=== PATIENT | male | born 1995 | race Caucasian/White ===

== ENCOUNTER 2020-12-29 13:35 | Emergency (ER) | payer OTHER ==
[2020-12-29 14:12] VITALS: BP 150/73; PULSE 62; TEMP 98.4; BMI 27.5
== END 2020-12-29 15:59 | disposition home or self-care (01) ==
LOC: FER 13:35
DX: S59.902A Unspecified injury of left elbow, initial encounter (principal); S99.922A Unspecified injury of left foot, initial encounter
CPT/HCPCS: 73070-TC-LT-FY; 73090-TC-LT-FY; 73610-TC-LT-FY; 73630-TC-LT; 99284-25

== ENCOUNTER 2021-08-19 13:14 | Emergency (ER) | payer OTHER ==
[2021-08-19] MEDS ORDERED: ACETAMINOPHEN 325 MG TABLET (FP) PO ONE (13:38)
[2021-08-19] MEDS ORDERED: DIPHTH,PERTUSS(ACELL),TET 0.5 ML DISP.SYRIN IM ONE ×2 (13:38→13:53)
[2021-08-19 13:40] VITALS: BP 144/72; PULSE 52; TEMP 99; BMI 27.5
[2021-08-19] MEDS ORDERED: ACETAMINOPHEN 325 MG TABLET (FP) ONE (13:53)
== END 2021-08-19 14:23 | disposition home or self-care (01) ==
LOC: FER 13:14
DX: M25.561 Pain in right knee (principal)
CPT/HCPCS: 99283-25

== ENCOUNTER 2021-09-17 10:03 | Emergency (ER) | payer OTHER ==
[2021-09-17 10:11] VITALS: BP 137/77; PULSE 58; TEMP 99.1; BMI 27.5
== END 2021-09-17 11:26 | disposition home or self-care (01) ==
LOC: FER 10:03
DX: S09.90XA Unspecified injury of head, initial encounter (principal); S00.01XA Abrasion of scalp, initial encounter; W22.8XXA Striking against or struck by other objects, initial encounter; Y35.811A Legal intervention involving manhandling, law enforcement official injured, initial encounter
CPT/HCPCS: 99281-25

== ENCOUNTER 2021-10-12 15:19 | Emergency (ER) | payer OTHER ==
[2021-10-12 15:46] VITALS: BP 148/75; PULSE 61; TEMP 97.9; BMI 28.1
== END 2021-10-12 16:16 | disposition home or self-care (01) ==
LOC: FER 15:19
DX: S80.211A Abrasion, right knee, initial encounter (principal); S80.212A Abrasion, left knee, initial encounter; Y35.891A Legal intervention involving other specified means, law enforcement official injured, initial encounter
CPT/HCPCS: 99281-25

== ENCOUNTER 2022-05-03 14:02 | Emergency (ER) | payer OTHER ==
[2022-05-03] MEDS ORDERED: DIPHTH,PERTUSS(ACELL),TET 0.5 ML DISP.SYRIN IM ONE (14:09)
[2022-05-03 14:13] VITALS: BP 135/79; PULSE 67; RESP 18; TEMP 97.9; BMI 28.5
[2022-05-03] MEDS ORDERED: TETANUS AND DIPHTHERIA TOXOID 0.5 ML DISP.SYRIN IM ONE (14:21)
== END 2022-05-03 14:28 | disposition home or self-care (01) ==
LOC: FER 14:02
PROC: 3E0234Z Introduction of Serum, Toxoid and Vaccine into Muscle, Percutaneous Approach (ICD-10-PCS; principal; 2022-05-03)
DX: S61.401A Unspecified open wound of right hand, initial encounter (principal); S60.512A Abrasion of left hand, initial encounter; W26.8XXA Contact with other sharp object(s), not elsewhere classified, initial encounter
CPT/HCPCS: 90715; 99284-25

== ENCOUNTER 2022-11-08 15:33 | Emergency (ER) | payer OTHER ==
[2022-11-08 15:50] VITALS: BP 132/77; PULSE 89; RESP 16; TEMP 98.3; BMI 28.5
[2022-11-08] MEDS ORDERED: IBUPROFEN 600 MG TABLET (FP) PO ONE ×2 (15:59→16:03)
== END 2022-11-08 16:12 | disposition home or self-care (01) ==
LOC: FER 15:33
DX: S83.92XA Sprain of unspecified site of left knee, initial encounter (principal); X50.9XXA Other and unspecified overexertion or strenuous movements or postures, initial encounter
CPT/HCPCS: 99283-25

== ENCOUNTER 2023-02-08 14:07 | Emergency (ER) | payer OTHER ==
[2023-02-08] MEDS ORDERED: IBUPROFEN 600 MG TABLET (FP) PO ONE ×2 (14:16→14:30)
[2023-02-08 14:21] VITALS: BP 135/83; PULSE 66; RESP 20; TEMP 98.6; BMI 28.5
== END 2023-02-08 14:35 | disposition home or self-care (01) ==
LOC: FER 14:07
DX: S29.012A Strain of muscle and tendon of back wall of thorax, initial encounter (principal); M25.511 Pain in right shoulder; X58.XXXA Exposure to other specified factors, initial encounter; Y99.0 Civilian activity done for income or pay
CPT/HCPCS: 99283-25

== ENCOUNTER 2023-02-09 16:05 | Emergency (ER) | payer OTHER ==
[2023-02-09 16:18] VITALS: BP 135/75; PULSE 70; RESP 16; TEMP 98.3; BMI 29.2
== END 2023-02-09 17:03 | disposition home or self-care (01) ==
LOC: FER 16:05
DX: R51.9 Headache, unspecified (principal); V49.40XA Driver injured in collision with unspecified motor vehicles in traffic accident, initial encounter; W22.8XXA Striking against or struck by other objects, initial encounter; Y93.I9 Activity, other involving external motion; Y99.0 Civilian activity done for income or pay
CPT/HCPCS: 99281-25

== ENCOUNTER 2023-07-10 12:35 | Emergency (ER) | payer OTHER ==
[2023-07-10 12:55] VITALS: BP 150/89; PULSE 70; RESP 16; TEMP 98.5; BMI 29.9
== END 2023-07-10 13:14 | disposition home or self-care (01) ==
LOC: FER 12:35
DX: M25.531 Pain in right wrist (principal); X50.9XXA Other and unspecified overexertion or strenuous movements or postures, initial encounter; Y99.0 Civilian activity done for income or pay
CPT/HCPCS: 99282-25

== ENCOUNTER 2025-05-16 15:11 | Emergency (ER) | payer OTHER ==
[2025-05-16 15:41] VITALS: BP 130/85; PULSE 62; RESP 18; TEMP 98.4; BMI 30.7
[2025-05-16] MEDS ORDERED: IBUPROFEN 600 MG TABLET (FP) PO ONE (16:32)
[2025-05-16] MEDS ORDERED: ACETAMINOPHEN 500 MG TABLET (FP) ONE (16:32)
[2025-05-16] MEDS ORDERED: METHOCARBAMOL 500 MG TABLET ONE (16:32)
[2025-05-16] MEDS: ACETAMINOPHEN 500 MG TABLET (FP) PO ONE (17:22)
[2025-05-16] MEDS: IBUPROFEN 600 MG TABLET (FP) PO ONE (17:22)
[2025-05-16] MEDS: METHOCARBAMOL 500 MG TABLET PO ONE (17:22)
== END 2025-05-16 17:41 | disposition home or self-care (01) ==
LOC: JERFT 15:11
DX: S16.1XXA Strain of muscle, fascia and tendon at neck level, initial encounter (principal); S39.012A Strain of muscle, fascia and tendon of lower back, initial encounter; V49.50XA Passenger injured in collision with unspecified motor vehicles in traffic accident, initial encounter; Y92.410 Unspecified street and highway as the place of occurrence of the external cause; Y35.811A Legal intervention involving manhandling, law enforcement official injured, initial encounter
CPT/HCPCS: 70450-TC; 72125-TC; 99284-25